=== PATIENT | female | born 1935 | race Caucasian/White ===

== ENCOUNTER 2022-05-10 14:30 | Outpatient (RCR) | payer MEDICARE, SELFPAY ==
--- NOTE | 2022-04-12 12:06 | PT.OPEX ---
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 I was fairly good until I was diagnosed with RC. The first surgery went fine, but the second one had some residual nerve injury. I have a big bump on my Lt shoulder, but my current concern is my Rt shoulder and neck. The pain is so bad it throws me off balance. I have balance problems secondary to hip and myriam TKR. I just move slower. My pain is 10/10 fairly constant. I get relief with heat at times. I try to change position and alternate how I use my arms. I have cont seeing a physician for my hand , injections help for a bit. I do not have GERARD. I only feel fairly good with Tylenol and sleeping. 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 Hypertension, mental health issues Weight Bearing Status Full Weight Bearing Therapy Limitations/Systems Review Vision,Hearing Objective Range of Motion AROM: Rt shoulder FF 0-55 / ABD 0-38 /ER 0-75/IR 0-55/EXT 0-50 Lt shoulder FF 0-95 /ABD 0-101 /ER 0-81/IR 0-52/EXT 0-60 CX AROM: FF WNL / EXT 50% of normal / Myriam ROT 40% of normal / SB myriam 20% of normal Strength In neutral, MMT is grossly 4/5 myriam Palpation Significant loss of up/down and side glides at CX spine. Hypertonicity of full psps occiput to T8, UT/MT/levator/ scalenes. Balance & Gait Flat foot strike, leg length deviation with Rt leg shorter - build up shoe. Moderate scoliosis Posture Increased thoracic kyphosis and reduced lumbar lordosis Assessment Assessment/Impression 86 yo with DX of Myriam Chronic Shoulder Pain (accompanying DX of: Lt A-C joint arthrosis , Lt RC Arthropathy, S/P Rt shoulder Reverse TSA replacement). She arrived to dept via IND ambulation without any AD. She presents with significant loss of AROM in CX and myriam shoulders. She lives alone, her son/family lives 5 blocks away. She is able to drive, complete all self cares and home chores IND . Does her own shopping and cooking. She states her lack of UE AROM is been present for many years (10+) and she has learned to live with it. She has significant soft tissue hypertonicity: UT/MT/rhomboid, levator, scalenes and sub- occipital group. Trigger point sensitive along med and sup scap borders. Rt first rib elevation. She suffers from scoliosis and leg length deviation. She wears a Rt build up shoe and states she is getting orthotics next week . She appears to have pain secondary to severe overuse and compensatory movements at myriam UE - UT overuse for task execution. She will benefit from cont skilled physical therapy to provide DTM/MFR/TPR and progressive stretch / strengthening with postural tips and possilbe use of TASTM and cupping trial. Thank you for this referral. Plan of Care Rehabilitation Potential Good Physical Therapy Goals In 4-6 visits, Birdie will be able to: 1. Pull chin /head back and create improve CX posture with increased CX EXT strength 2. Reduced pain report from contant 10/10 to at least 7/10 average 75% of the time. In 10-12 visits, Birdie will be able to: 1. IND in HEP with emphasis on alignment, reps/HOLD times to cont once DC from PT with pain control 2. Repetative UE use up to 60 min (cooking, cleaning, self cares, etc) without pain greater than 6/10 90% of the time. Coordination/Communication With Referral Source Treatment Plan/Direct Interventions Joint Mobilization,Manual Therapy,Neuromuscular Re-ed, Self-Care/Home Management, Therapeutic Activities, Therapeutic Exercises Frequency/Duration 1X/Wk for 12 visits Patient Will Be Discharged From Therapy Completion of LTG(s),Skills Plateau,Independent w/HEP, Independently Progressing Evaluation Billing Untimed Code Treatment Minutes 33 Complexity Moderate Certification Information Initial Certification Date 04/12/22 Ending Certification Date 07/05/22 Provider Signature Shows Agreement With POC & Medical Necessity Physician Comment/Change Comment or Changes Physician NPI Number #
== END 2022-06-21 12:08 | disposition home or self-care (01) ==
PROVIDERS: Visit Provider Orthopaedic Surgery
DX: M25.511 Pain in right shoulder (principal); Z51.89 Encounter for other specified aftercare
CPT/HCPCS: 97140; 97162

== ENCOUNTER 2023-05-09 08:11 | Day surgery (SDC) | payer MEDICARE, SELFPAY ==
[2023-05-09] MEDS: TETRACAINE 0.5% OPHTH 1 DROP EYE-LEFT ×2 (08:25→08:35)
[2023-05-09] MEDS: KETOROLAC OPHTH 0.5% 1 DROP EYE-LEFT ×2 (08:32→08:42)
[2023-05-09 08:36] VITALS: BMI 22.7
[2023-05-09 08:40] VITALS: BP 131/61; PULSE 62; RESP 20; TEMP 36.3; O2SAT 93
[2023-05-09] MEDS: SODIUM CHLORIDE 0.9 % (FLUSH) 10 ML SYRINGE IVF (08:51)
--- NOTE | 2023-05-09 08:52 | SUR.PREOP ---
The eye drops brought by the patient (Ketorolac and Prednisolone) are examined and I have determined they are labeled by the patient's pharmacy for this patient as prescribed by the surgeon. The bottles are intact, recently obtained and appear to be correct.
[2023-05-09] MEDS: TETRACAINE 0.5% OPHTH 2 DROP EYE-LEFT (09:35)
--- NOTE | 2023-05-09 09:38 | W.ANESCHARGE ---
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
[2023-05-09] MEDS: BALANCED SALT IRRIG SOLN 15 ML EYE-LEFT (09:39)
--- NOTE | 2023-05-09 10:12 | W.PM.OPTPROC ---
Procedure Note Date of procedure: 05/09/23 Will [facility] bill your pro fee for this procedure?: Yes Procedure Description: SURGEON: Ewelina Rossi MD PREOPERATIVE DIAGNOSIS: Nuclear sclerotic cataract, left eye. POSTOPERATIVE DIAGNOSIS: Nuclear sclerotic cataract, left eye. NAME OF OPERATION: Phacoemulsification of cataract with posterior chamber intraocular lens implantation in the left eye. ANESTHESIA: Topical. ESTIMATED BLOOD LOSS: Less than 2 cc. COMPLICATIONS: None. PATHOLOGY SPECIMEN: None. INDICATIONS: See consult note for details. The risks, benefits and alternatives of the procedure were explained to the patient, who elected to proceed and signed informed consent to do so. PROCEDURE: The patient was brought to the pre-holding area where the left eye was identified as the operative eye. I placed my initials above this eye. The patient received eye drops consisting of 0.5% tetracaine, 1% tropicamide, 10% phenylephrine, and 0.5% ketorolac. The patient was then brought to the operating room where the left eye was again identified as the operative eye. The eye was prepped with Betadine and draped in the usual sterile ophthalmic fashion. A #15 super-sharp blade was used to create a paracentesis site. 1% non-preserved intracameral lidocaine was injected into the anterior chamber. Endocoat was injected into the anterior chamber. A 2.4 mm keratome was used to create a three-plane self-sealing incision 1 mm anterior to the temporal limbus. A cystotome was used to create an anterior capsular leaflet. The Utrata forceps were used to extend this to form a continuous curvilinear capsulorrhexis. Hydrodissection was performed. The cataract was removed with phacoemulsification using the [id number] technique. The irrigation and aspiration tip was used to remove the remaining cortex. Healon was injected into the capsular bag. An KEO ZCB00 intraocular lens of 16.0 diopters was injected into the capsular bag. The irrigation and aspiration tip was used to remove the remaining viscoelastic. Balanced salt solution on a cannula was used to hydrate the wound, and the wound was found to be watertight. The pupil was noted to be round. DISPOSITION: The patient was taken to the recovery room and discharged to home in stable condition. The patient was instructed to call me or go to the emergency department with any sudden change, including dramatic loss of vision, severe pain in the eye or eyebrow region, nausea, or vomiting. The patient will follow up in the clinic tomorrow morning.
[2023-05-09 10:14] VITALS: BP 116/56; PULSE 65; RESP 16; TEMP 36.2; O2SAT 96
--- NOTE | 2023-05-09 11:16 | W.ANESCHARGE ---
Anesthesia Charges Start Date/Time Anesthesia Start Date: 05/09/23 Anesthesia Start Time: 09:29 Stop Date/Time Anesthesia Stop Date: 05/09/23 Anesthesia Stop Time: 10:07
--- NOTE | 2023-05-09 11:16 | W.ANESCHARGE ---
Anesthesia Charges Start Date/Time Anesthesia Start Date: 05/09/23 Anesthesia Start Time: 09:29 Stop Date/Time Anesthesia Stop Date: 05/09/23 Anesthesia Stop Time: 10:07 Summary Extremes of Age - Over 70 or under 1: MDA
== END 2023-05-09 10:43 | disposition home or self-care (01) ==
PROVIDERS: PCP Family Medicine; Visit Provider Ophthalmology
PROC: (CPT 66984; principal; 2023-05-09 08:15)
DX: H25.12 Age-related nuclear cataract, left eye (principal)
CPT/HCPCS: 66984; 00142; 99100; A9270; J2250; J3010; V2632

== ENCOUNTER 2023-05-23 07:23 | Day surgery (SDC) | payer MEDICARE, SELFPAY ==
[2023-05-23] MEDS: TETRACAINE 0.5% OPHTH 1 DROP EYE-RIGHT ×2 (07:30→07:35)
[2023-05-23] MEDS: KETOROLAC OPHTH 0.5% 1 DROP EYE-RIGHT ×2 (07:30→07:35)
[2023-05-23 07:31] VITALS: BMI 22.7
[2023-05-23 07:41] VITALS: BP 122/60; PULSE 78; RESP 16; TEMP 36.6; O2SAT 97
[2023-05-23] MEDS: SODIUM CHLORIDE 0.9 % (FLUSH) 10 ML SYRINGE IVF (07:45)
[2023-05-23] MEDS: TETRACAINE 0.5% OPHTH 2 DROP EYE-RIGHT (08:41)
[2023-05-23] MEDS: BALANCED SALT IRRIG SOLN 15 ML EYE-RIGHT (08:44)
[2023-05-23 09:05] VITALS: BP 135/69; PULSE 73; RESP 16; TEMP 36.6; O2SAT 98
--- NOTE | 2023-05-23 09:09 | P.ANES_ITS ---
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
--- NOTE | 2023-05-23 09:09 | P.OPTPRC_ITS ---
Procedure Note Date of procedure: 05/23/23 Will [facility] bill your pro fee for this procedure?: Yes Procedure Description: SURGEON: Ewelina Rossi MD PREOPERATIVE DIAGNOSIS: Nuclear sclerotic cataract, right eye. POSTOPERATIVE DIAGNOSIS: Nuclear sclerotic cataract, right eye. NAME OF OPERATION: Phacoemulsification of cataract with posterior chamber intraocular lens implantation in the right eye. ANESTHESIA: Topical. ESTIMATED BLOOD LOSS: Less than 2 cc. COMPLICATIONS: None. PATHOLOGY SPECIMEN: None. INDICATIONS: See consult note for details. The risks, benefits and alternatives of the procedure were explained to the patient, who elected to proceed and signed informed consent to do so. PROCEDURE: The patient was brought to the pre-holding area where the right eye was identified as the operative eye. I placed my initials above this eye. The patient received eye drops consisting of 0.5% tetracaine, 1% tropicamide, 10% phenylephrine, and 0.5% ketorolac. The patient was then brought to the operating room where the right eye was again identified as the operative eye. The eye was prepped with Betadine and draped in the usual sterile ophthalmic fashion. A #15 super-sharp blade was used to create a paracentesis site. 1% non-preserved intracameral lidocaine was injected into the anterior chamber. Endocoat was injected into the anterior chamber. A 2.4 mm keratome was used to create a three-plane self-sealing incision 1 mm anterior to the temporal limbus. A cystotome was used to create an anterior capsular leaflet. The Utrata forceps were used to extend this to form a continuous curvilinear capsulorrhexis. Hydrodissection was performed. The cataract was removed with phacoemulsification using the [id number] technique. The irrigation and aspiration tip was used to remove the remaining cortex. Healon was injected into the capsular bag. An KEO ZCB00 intraocular lens of 17.0 diopters was injected into the capsular bag. The irrigation and aspiration tip was used to remove the remaining viscoelastic. Balanced salt solution on a cannula was used to hydrate the wound, and the wound was found to be watertight. The pupil was noted to be round. DISPOSITION: The patient was taken to the recovery room and discharged to home in stable condition. The patient was instructed to call me or go to the emergency department with any sudden change, including dramatic loss of vision, severe pain in the eye or eyebrow region, nausea, or vomiting. The patient will follow up in the clinic tomorrow morning.
== END 2023-05-23 09:40 | disposition home or self-care (01) ==
PROVIDERS: PCP Family Medicine; Visit Provider Ophthalmology
PROC: (CPT 66984; principal; 2023-05-23 07:30)
DX: H25.11 Age-related nuclear cataract, right eye (principal)
CPT/HCPCS: 66984; 00142; 99100; A9270; J2250; J3010; V2632

== ENCOUNTER 2023-08-23 13:00 | Outpatient (RCR) | payer MEDICARE, SELFPAY | END 2023-12-21 23:59 | disposition home or self-care (01) | PROVIDERS: PCP Family Medicine; Visit Provider Chiropractor Rehabilitation | DX: M54.2 Cervicalgia (principal); Z98.1 Arthrodesis status; Z74.09 Other reduced mobility; R29.898 Other symptoms and signs involving the musculoskeletal system; Z51.89 Encounter for other specified aftercare | CPT/HCPCS: 97110; 97140; 97162 ==

== ENCOUNTER 2024-01-13 22:12 | Inpatient (IN) | payer MEDICARE, SELFPAY ==
[2024-01-13 22:26] VITALS: BP 103/66; PULSE 95; RESP 20; TEMP 36.2; O2SAT 97; BMI 18.9
--- NOTE | 2024-01-13 22:52 | CRLHL7_ITS ---
For Patients: As a result of the Century Cures Act, medical imaging exams and procedure reports are released immediately into your electronic medical record. You may view this report before your referring provider. If you have questions, please contact your health care provider. INDICATION: BLOODY DIARRHEA. LOWER ABD PAIN. HX DIVERTICULITIS. TECHNIQUE: CT abdomen and pelvis acquired with 100 cc of Omnipaque 350 IV contrast. COMPARISON: None. FINDINGS: Lower chest: 9 mm flat nodular density in the right middle lobe, likely a focus of scarring. Liver: Unremarkable. Normal in size and attenuation. No suspicious masses. Gallbladder and bile ducts: Unremarkable. No stones or inflammation. No biliary dilatation. Pancreas: Unremarkable. No mass or inflammation. Spleen: Unremarkable. Normal in size. No masses. Adrenal glands: Unremarkable. No nodules. Kidneys, Ureters, and Bladder: Moderate to severe right-sided hydronephrosis. Punctate nonobstructing nephrolith within the right kidney. The ureters are normal in caliber. Unremarkable left kidney and urinary bladder. GI tract: Diverticulosis without pericolonic inflammation. No obstruction. Normal appendix. Vasculature: Normal caliber abdominal aorta with severe atherosclerotic calcification. Mesenteric arteries are patent. Lymph nodes: No lymphadenopathy. Peritoneum/Abdominal Wall: Unremarkable. No free air or significant free fluid. Pelvis: 5.5 x 3.7 cm simple cystic lesion within the right adnexa 3.4 x 3.2 cm simple cystic lesion within the left adnexa. Bones: Left total hip arthroplasty. Otherwise, unremarkable for age IMPRESSION: 1. Diverticulosis without evidence of diverticulitis. 2. Moderate to severe right-sided hydronephrosis with abrupt transition to normal caliber right ureter at the ureteropelvic junction. 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 No obstructing lesion visualized. 3. Bilateral adnexal cystic lesions, right greater than left measuring 5.5 cm and 3.4 cm, respectively. Recommend further evaluation with pelvic ultrasound as an outpatient. Please note that all CT scans at this facility use dose modulation, iterative reconstruction, and/or weight-based dosing when appropriate to reduce radiation dose to as low as reasonably achievable. Dictated by Pipe Blair MD @ 01/14/2024 12:30:20 AM (Electronically Signed)
[2024-01-13] MEDS: 0.9 % SODIUM CHLORIDE 1000 ml 1,000 ML IV (23:02)
[2024-01-13 23:18] LABS: Albumin* 3.2 g/dL (3.3-5.0); Chloride* 99 mmol/L (96-114); Sodium* 134 mmol/L (135-149)
[2024-01-13 23:19] LABS: Potassium* 4.2 mmol/L (3.6-5.1)
[2024-01-13 23:20] LABS: Est. Creatinine Clearance* 31.81; Estimated Glomerular Filt Rate 55 ml/min
[2024-01-13 23:21] LABS: Alkaline Phosphatase* 68 U/L (40-150); Anion Gap 4 mEq/L (7-15); Aspartate Amino Transferase* 36 U/L (12-35); Bilirubin Direct* 0.3 mg/dL (0.0-0.5); Bilirubin Total* 0.5 mg/dL (0.1-1.5); Blood Urea Nitrogen* 49 mg/dL (7-30); Carbon Dioxide* 31 mmol/L (20-32); Total Protein* 5.7 g/dL (6.0-8.3)
[2024-01-13 23:22] LABS: Alanine Aminotransferase* 26 U/L (4-35); Calcium* 9.8 mg/dL (8.4-10.6); Glucose* 131 mg/dL (60-115)
[2024-01-13 23:24] LABS: C Reactive Protein* 1.7 mg/dL (0.5-1.0)
[2024-01-13 23:25] LABS: Basophils Percent Auto 0.2 % (0.0-3.0); Eosinophils Percent Auto 0.8 % (0.0-7.0); Hematocrit 30.1 % (33.0-51.0); Hemoglobin* 10.1 gm/dL (12.0-16.0); Immature Granulocytes Pct Auto 5.8 %; Lymphocytes Percent Auto 18.2 % (20-44); Mean Corpuscular HGB Conc 34 gm/dL (32-36); Mean Corpuscular Hemoglobin 33 pg (26-34); Mean Corpuscular Volume 98 fL (80-100); Monocytes Percent Auto 8.7 % (0.0-11.0); Neutrophils Percent Auto 66.3 % (42.0-72.0); Platelet Count* 373 K/uL (140-440); RDW Coefficient of Variation % 12.4 % (11.5-15.5); Red Blood Count 3.07 m/uL (4.00-5.20); Slide Review Reflex No; White Blood Count* 13.04 K/uL (4.50-11.00)
[2024-01-13 23:29] LABS: INR 1.01 (0.91-1.10); Prothrombin Time 13.9 Seconds
--- NOTE | 2024-01-13 23:35 | ED_ITS ---
HPI - General Adult General Date Seen: 01/13/24 Chief complaint: Diarrhea Stated complaint: Diarrhea Time Seen by Provider: 01/13/24 22:18 Source: patient, family, RN notes reviewed and old records reviewed Mode of arrival: ambulatory Limitations: no limitations History of Present Illness HPI narrative: Patient is an 88-year-old woman here with family for evaluation of an episode of bloody diarrhea. She does say that she had some diarrhea for which she was seen in clinic last Sunday. They treated the diarrhea it sounds like with an antidiarrheal and she got back to normal. Family says they are here because clinic said if she had bloody stools they want to know about that. She did have 1 episode of bloody diarrhea tonight, has not had significant abdominal pain although she notes little abdominal tenderness. No recent antibiotics or travel. No fevers. No nausea or vomiting. No history of prior GI bleeding. She is not anticoagulated. No black or tarry stools. Related Data Home Medications ?Medication ?Instructions ?Recorded ?Confirmed amlodipine 10 mg tablet 10 mg PO DAILY 05/07/23 01/13/24 calcium carbonate 200 mg PO BID 05/07/23 01/13/24 metoprolol succinate 50 mg 50 mg PO DAILY 05/07/23 01/13/24 tablet,extended release 24 hr cyclosporine 0.05 % eye drops 1 drp ophthalmic (eye) BID 01/14/24 01/14/24 (Restasis MultiDose) hydromorphone 2 mg tablet 2 mg PO Q6H PRN 01/14/24 01/14/24 pregabalin 50 mg capsule 50 mg PO TID 01/14/24 01/14/24 Allergies Allergy/AdvReac Type Severity Reaction Status Date / Time oxycodone Allergy Rash Verified 01/13/24 23:54 Penicillins Allergy Rash Verified 01/13/24 23:54 tramadol Allergy Rash Verified 01/13/24 23:54 Review of Systems Status of ROS: Reports: 10 or more systems reviewed and unremarkable except as noted in History and below [facility] Medical History Cervical myelopathy ?G95.9 - Disease of spinal cord, unspecified (ICD-10) Hypertension ?I10 - Essential (primary) hypertension (ICD-10) Lipoma of left upper extremity ?D17.22 - Benign lipomatous neoplasm of skin and subcutaneous tissue of left arm (ICD-10) Lipoma of right upper extremity ?D17.21 - Benign lipomatous neoplasm of skin and subcutaneous tissue of right arm (ICD-10) 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 - Unspecified mononeuropathy of right upper limb (ICD-10) Trigger finger of right hand ?M65.30 - Trigger finger, unspecified finger (ICD-10) Onychomycosis ?B35.1 - Tinea unguium (ICD-10) 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 - Spondylosis without myelopathy or radiculopathy, lumbar region (ICD-10) Myalgia ?M79.10 - Myalgia, unspecified site (ICD-10) 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, unspecified shoulder (ICD-10) [facility]MC DJD(carpometacarpal degenerative joint disease), localized primary ?M19.049 - Primary osteoarthritis, unspecified hand (ICD-10) 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 - Other lesions of median nerve, unspecified upper limb (ICD-10) Surgical History S/P total knee replacement ?Z96.659 - Presence of unspecified artificial knee joint (ICD-10) H/O total hip arthroplasty ?Z96.649 - Presence of unspecified artificial hip joint (ICD-10) S/P cervical spinal fusion ?Z98.1 - Arthrodesis status (ICD-10) S/P endoscopic carpal tunnel release ?Z98.890 - Other specified postprocedural states (ICD-10) S/p reverse total shoulder arthroplasty ?Z96.619 - Presence of unspecified artificial shoulder joint (ICD-10) Social History What is your current living situation?: I presently have a place to live Problems where you live: no known problems Problems where you live details: N/A In the past 12 months, utilities in danger of being shut off: no In past 12 months, lack of transportation kept you from medical appts, meetings, work, or getting things needed for daily living: no In the past 12 mos, have been you worried that your food would run out before you had money to buy more?: never true In the past 12 mos, the food you bought just didn't last and you didn't have money to buy more?: never true Smoking Status: Never smoker Do you use any of these nicotine containing products: None Second hand tobacco smoke exposure: No How often do you have a drink containing alcohol: monthly or less Alcohol type: wine How many standard drinks containing alcohol do you have on a typical day: 1 or 2 How often do you have six or more drinks on one occasion: Never AUDIT-C Alcohol total score: 1 Non-prescribed substance use: denies use Caffeine: Yes (1 cup coffee/day) How often does anyone, including family, friends and others, physically hurt you : never How often does anyone, including family, friends and others, insult or talk down to you: never How often does anyone, including family, friends and others, threaten you with harm: never How often does anyone, including family, friends and others, scream or curse at you: never Are you using contraception or practicing any form of control: No Exam Narrative: Exam Narrative: Vital signs as noted above. In general, an alert, well-appearing patient. Head: Normocephalic, atraumatic. Eyes: Pupils are equal reactive. Extraocular movements are full. Conjunctivae are normal. ENT: Mucous membranes are moist. Throat is normal. Neck: Supple without lymphadenopathy. Heart: Regular rate and rhythm. No murmur or rub. Lungs: Clear bilaterally. No increased work of breathing, crackles or wheezes. Abdomen: Soft and nondistended. A little bit of lower abdominal tenderness without rebound guarding or rigidity. Extremities: Well perfused. No edema. No calf tenderness. Pulses intact. Neurologic: Patient is alert and oriented to person and place. Speech is fluent. Face is symmetric. Moves all extremities equally. Affect: Normal. Skin: Warm and dry. Well perfused. Const: Vital Signs, click to edit/add: Vital Signs - 24 hr 01/13/24 22:26 Temperature 97.2 F L Pulse Rate [Pulse Oximeter] 95 Respiratory Rate 20 Blood Pressure [Ri ght Upper Arm] 103/66 Pulse Oximetry 97 Oxygen Delivery Me thod Room Air Documenting provider has reviewed patient's vital signs: yes Course Course ED Course: Will place an IV, give some fluids, check hemoglobin and other labs. I think it is reasonable to do a CT scan make sure she does not have evidence of colitis, diverticulitis or other acute infectious process. Minimal abdominal pain, doubt this represents ischemic colitis. Labs are notable for hemoglobin of 10, baseline unknown. Patient does not believe that she has been anemic in the past although I get the sense she isn't entirely sure what that means. White count mildly elevated at 13, normal platelets. Metabolic panel notable for sodium of 134 potassium 4.2 BUN of 49 perhaps related to GI blood loss. Creatinine is normal. Glucose is 131 LFTs unremarkable. CRP mildly elevated 1.7. CT scan by my review showed fairly significant hydronephrosis and hydroureter on the right of uncertain significance. She had cystic structures in the pelvis as well. I did not see significant inflammatory changes around the bowel. Final radiology read as follows:FINDINGS: Lower chest: 9 mm flat nodular density in the right middle lobe, likely a focus of scarring. Liver: Unremarkable. Normal in size and attenuation. No suspicious masses. Gallbladder and bile ducts: Unremarkable. No stones or inflammation. No biliary dilatation. Pancreas: Unremarkable. No mass or inflammation. Spleen: Unremarkable. Normal in size. No masses. Adrenal glands: Unremarkable. No nodules. Kidneys, Ureters, and Bladder: Moderate to severe right-sided hydronephrosis. Punctate nonobstructing nephrolith within the right kidney. The ureters are normal in caliber. Unremarkable left kidney and urinary bladder. GI tract: Diverticulosis without pericolonic inflammation. No obstruction. Normal appendix. Vasculature: Normal caliber abdominal aorta with severe atherosclerotic calcification. Mesenteric arteries are patent. Lymph nodes: No lymphadenopathy. Peritoneum/Abdominal Wall: Unremarkable. No free air or significant free fluid. Pelvis: 5.5 x 3.7 cm simple cystic lesion within the right adnexa 3.4 x 3.2 cm simple cystic lesion within the left adnexa. Bones: Left total hip arthroplasty. Otherwise, unremarkable for age IMPRESSION: 1. Diverticulosis without evidence of diverticulitis. 2. Moderate to severe right-sided hydronephrosis with abrupt transition to normal caliber right ureter at the ureteropelvic junction. 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 No obstructing lesion visualized. 3. Bilateral adnexal cystic lesions, right greater than left measuring 5.5 cm and 3.4 cm, respectively. Recommend further evaluation with pelvic ultrasound as an outpatient. Reviewed all this with the patient. In the interim, she did have another bowel movement here, it was really just all large clot, and with her hemoglobin low and baseline unknown, and with evidence of ongoing bleeding, I did recommend that she stay in hospital tonight for serial hemoglobins and discussion of further evaluation of GI bleed tomorrow. Other findings to be evaluated as needed. I gave her Protonix here, I did a type and screen. She is stable for admission, [facility] accepted. Vital Signs Vital signs: Initial Vital Signs Temperature 97.2 F L 01/13/24 22:26 Temperature Source Temporal Artery Scan 01/13/24 22:26 Pulse Rate 95 01/13/24 22:26 Pulse Rhythm Regular 01/13/24 22:26 Pulse Strength 3+ Normal 01/13/24 22:26 Respiratory Rate 20 01/13/24 22:26 Blood Pressure 103/66 01/13/24 22:26 Blood Pressure Mean 78 01/13/24 22:26 Pulse Oximetry 97 01/13/24 22:26 Oxygen Delivery Method Room Air 01/13/24 22:26 Vital Signs Temperature 97.2 F L 01/13/24 22:26 Pulse Rate 95 01/13/24 22:26 Respiratory Rate 20 01/13/24 22:26 Blood Pressure 103/66 01/13/24 22:26 Pulse Oximetry 97 01/13/24 22:26 Oxygen Delivery Method Room Air 01/13/24 22:26 Temperature 98.2 F 01/15/24 07:35 Pulse Rate 117 H 01/15/24 08:00 Respiratory Rate 18 01/15/24 08:00 Blood Pressure 139/68 01/15/24 07:35 Pulse Oximetry 95 01/15/24 07:35 Oxygen Delivery Method Room Air 01/15/24 07:35 Medications Administered Medications: Generic Name Dose Route Start Last Admin Trade Name Freq PRN Reason Stop Dose Admin Amlodipine Besylate 10 mg 01/14/24 09:00 01/14/24 08:17 Amlodipine 10 Mg Tablet PO Not Given DAILY [facility] Metoprolol Succinate 50 mg 01/14/24 09:00 01/14/24 08:17 Metoprolol Succinate (Xl) 50 Mg Tab PO Not Given DAILY ZAHRA Pantoprazole Sodium 40 mg 01/14/24 06:00 01/15/24 06:25 Pantoprazole Sodium 40 Mg Inj IVP 40 mg Q12H ZAHRA Administration Sodium Chloride 5 ml 01/14/24 03:30 01/15/24 06:26 Sodium Chloride 0.9 % (Flush) 10 Ml Syringe IVF 5 ml .FLUSH PRN Administration Sodium Chloride 5 ml 01/14/24 09:00 01/14/24 22:12 Sodium Chloride 0.9 % (Flush) 10 Ml Syringe IVF 5 ml BID ZAHRA Administration Sodium Chloride 250 ml 01/14/24 07:16 01/14/24 12:20 0.9 % Sodium Chloride 250 Ml IV 01/15/24 23:59 250 ml ONCE PRN Administration Discontinued Medications Generic Name Dose Route Start Last Admin Trade Name Freq PRN Reason Stop Dose Admin Sodium Chloride 1,000 mls @ 1,000 mls/hr 01/13/24 22:45 01/14/24 00:15 0.9 % Sodium Chloride 1000 Ml IV 01/13/24 23:44 Infused .Q1H ZAHRA Infusion Pantoprazole Sodium 40 mg 01/14/24 00:39 01/14/24 00:56 Pantoprazole Sodium 40 Mg Inj IVP 01/14/24 00:40 40 mg ONCE ONE Administration Medical Decision Making Lab Data Labs: Lab Results 01/13/24 01/14/24 Range/Units 22:50 00:00 WBC 13.04 H (4.50-11.00) K/uL RBC 3.07 L (4.00-5.20) m/uL Hgb 10.1 L (12.0-16.0) gm/dL Hct 30.1 L (33.0-51.0) % MCV 98 (80-100) fL MCH 33 (26-34) pg MCHC 34 (32-36) gm/dL RDW Coeff of Shyla 12.4 (11.5-15.5) % Plt Count 373 (140-440) K/uL Neut % (Auto) 66.3 (42.0-72.0) % Lymph % (Auto) 18.2 L (20-44) % [place] % (Auto) 8.7 (0.0-11.0) % Eos % (Auto) 0.8 (0.0-7.0) % Baso % (Auto) 0.2 (0.0-3.0) % Neut # (Auto) 8.60 H (1.7-7.0) K/uL Lymph # (Auto) 2.40 (0.90-2.90) K/uL [place] # (Auto) 1.10 H (0.00-0.90) K/UL Eos # (Auto) 0.10 (0.00-0.50) K/uL Baso # (Auto) 0.00 (0.00-0.30) K/uL Abs Immat Gran (auto) 0.80 H (0.00-0.30) K/uL Imm/Tot Granulo (auto) 5.8 % INR 1.01 (0.91-1.10) Sodium 134 L (135-149) mmol/L Potassium 4.2 (3.6-5.1) mmol/L Chloride 99 (96-114) mmol/L Carbon Dioxide 31 (20-32) mmol/L Anion Gap 4 L (7-15) mEq/L BUN 49 H (7-30) mg/dL Creatinine 1.0 (0.5-1.5) mg/dL Estimated Creat Clear 31.81 Estimated GFR 55 ml/min Glucose 131 H (60-115) mg/dL Calcium 9.8 (8.4-10.6) mg/dL Total Bilirubin 0.5 (0.1-1.5) mg/dL Direct Bilirubin 0.3 (0.0-0.5) mg/dL AST 36 H (12-35) U/L ALT 26 (4-35) U/L Alkaline Phosphatase 68 (40-150) U/L C-Reactive Protein 1.7 H (0.5-1.0) mg/dL Total Protein 5.7 L (6.0-8.3) g/dL Albumin 3.2 L (3.3-5.0) g/dL Blood Type A Positive Antibody Screen NEGATIVE Crossmatch (AHG) See Detail Discharge Plan Discharge Clinical Impression: GI bleed Patient Disposition: Admitted As Observation Condition: Stable
[2024-01-14] VITALS (18 sets, daily range): BP systolic 84–124; BP diastolic 53–91; PULSE 82–109; RESP 16–20; TEMP 36.5–36.8; O2SAT 93–98; BMI 19.3
[2024-01-14] MEDS: PANTOPRAZOLE SODIUM 40 MG INJ IVP ×3 (00:56→17:35)
--- NOTE | 2024-01-14 03:42 | W.PM.THH&P_ITS ---
Telehealth- H&P: HPI History of Present Illness Date Seen: 01/26/24 Chief complaint: Diarrhea Narrative: Birdie Fernandez is seen as an Interactive Telehealth visit. Birdie Fernandez is a 88 year old male who is seen in her heart room and [facility]. She has been admitted through the emergency room. She is admitted with the assistance of nursing staff. She tells me that about a week ago she had diarrhea which she was seen in clinic it did not have any blood in it. She did better for about a week and then today has developed bloody stools. She is tells me the stool started off black and now have become more red. She denies fevers chills abdominal pain any burning with urination or other symptoms. She came into the emergency room and was evaluated. Hemoglobin was noted to be lower around 10. In the emergency room she denied black or bloody stools but to me she tells me they were indeed black. She was able Review of Systems Narrative: A complete review of systems was performed positive pertinent and negatives in the history of present illness. 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 - Unspecified mononeuropathy of right upper limb (ICD-10) Trigger finger of right hand ?M65.30 - Trigger finger, unspecified finger (ICD-10) Onychomycosis ?B35.1 - Tinea unguium (ICD-10) 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 - Spondylosis without myelopathy or radiculopathy, lumbar region ( ICD-10) Myalgia ?M79.10 - Myalgia, unspecified site (ICD-10) 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, unspecified shoulder (ICD-10) CMC DJD(carpometacarpal degenerative joint disease), localized primary ?M19.049 - Primary osteoarthritis, unspecified hand (ICD-10) 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 - Other lesions of median nerve, unspecified upper limb (ICD-10) Surgical History S/P total knee replacement ?Z96.659 - Presence of unspecified artificial knee joint (ICD-10) H/O total hip arthroplasty ?Z96.649 - Presence of unspecified artificial hip joint (ICD-10) S/P cervical spinal fusion ?Z98.1 - Arthrodesis status (ICD-10) S/P endoscopic carpal tunnel release ?Z98.890 - Other specified postprocedural states (ICD-10) S/p reverse total shoulder arthroplasty ?Z96.619 - Presence of unspecified artificial shoulder joint (ICD-10) Social History What is your current living situation?: I presently have a place to live Problems where you live: no known problems Problems where you live details: N/A In the past 12 months, utilities in danger of being shut off: no In past 12 months, lack of transportation kept you from medical appts, meetings, work, or getting things needed for daily living: no In the past 12 mos, have been you worried that your food would run out before you had money to buy more?: never true In the past 12 mos, the food you bought just didn't last and you didn't have money to buy more?: never true Smoking Status: Never smoker Do you use any of these nicotine containing products: None Second hand tobacco smoke exposure: No How often do you have a drink containing alcohol: monthly or less Alcohol type: wine How many standard drinks containing alcohol do you have on a typical day: 1 or 2 How often do you have six or more drinks on one occasion: Never AUDIT-C Alcohol total score: 1 Non-prescribed substance use: denies use Caffeine: Yes (1 cup coffee/day) How often does anyone, including family, friends and others, physically hurt you : never How often does anyone, including family, friends and others, insult or talk down to you: never How often does anyone, including family, friends and others, threaten you with harm: never How often does anyone, including family, friends and others, scream or curse at you: never Are you using contraception or practicing any form of control: No Meds Home Medications and Allergies Home Medications ?Medication ?Instructions ?Recorded ?Confirmed ?Type amlodipine 10 mg tablet 10 mg PO DAILY 05/07/23 01/13/24 History calcium carbonate 200 mg PO BID 05/07/23 01/13/24 History metoprolol succinate 50 mg 50 mg PO DAILY 05/07/23 01/13/24 History tablet,extended release 24 hr cyclosporine 0.05 % eye drops 1 drp ophthalmic (eye) BID 01/14/24 01/14/24 History (Restasis MultiDose) hydromorphone 2 mg tablet 2 mg PO Q6H PRN 01/14/24 01/14/24 History pregabalin 50 mg capsule 50 mg PO TID 01/14/24 01/14/24 History Allergies Allergy/AdvReac Type Severity Reaction Status Date / Time oxycodone Allergy Rash Verified 01/13/24 23:54 Penicillins Allergy Rash Verified 01/13/24 23:54 tramadol Allergy Rash Verified 01/13/24 23:54 Exam Narrative Exam Narrative: Physical Exam GENERAL: ?vital signs reviewed, well developed and nourished, in no distress HEENT: pupils are equal round and reactive to light, extraocular movements are grossly within normal limits and oral mucosa is moist. NECK: Supple without lymphadenopathy or thyromegaly according to nursing staff examination observation HEART: Regular rate and rhythm With soft systolic murmur no rubs or gallops. LUNGS: Clear to auscultation bilaterally with good air movement throughout ABDOMEN: Observation from nurse assisted exam, abdomen appears soft, nontender, and nondistended with Positive bowel sounds noted. EXTREMITIES: Strength and sensation is observed to be grossly within normal limits in the upper and lower extremities.? No focal strength deficit is observed. SKIN:? Observed warm and dry with color normal Const Vital Signs, click to edit/add: Vital Signs - 24 hr 01/13/24 22:26 01/14/24 03:02 Temperature 97.2 F L 97.9 F Pulse Rate [Pulse Oximeter] 95 92 Respiratory Rate 20 20 Blood Pressure [Right Arm] 122/74 Blood Pressure [Right Upper Arm] 103/66 Pulse Oximetry 97 98 Oxygen Delivery Method Room Air Room Air Hospitalist - H&P: Result Labs Labs: Short CBC 01/13/24 Range/Units 22:50 WBC 13.04 H (4.50-11.00) K/uL Hgb 10.1 L (12.0-16.0) gm/dL Hct 30.1 L (33.0-51.0) % Plt Count 373 (140-440) K/uL BMP 01/13/24 22:50 Sodium 134 L Potassium 4.2 Chloride 99 Carbon Dioxide 31 BUN 49 H Creatinine 1.0 Glucose 131 H Calcium 9.8 Liver Function 01/13/24 Range/Units 22:50 Total Bilirubin 0.5 (0.1-1.5) mg/dL Direct Bilirubin 0.3 (0.0-0.5) mg/dL AST 36 H (12-35) U/L ALT 26 (4-35) U/L Alkaline Phosphatase 68 (40-150) U/L Albumin 3.2 L (3.3-5.0) g/dL ECG Pacemaker function: normal pacer function Imaging CT Chest/Ab/Pelvis: Radiologist's impression: CT abdomen pelvis 1. Diverticulosis without evidence of diverticulitis. 2. Moderate to severe right-sided hydronephrosis with abrupt transition to normal caliber right ureter at the ureteropelvic junction. 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 No obstructing lesion visualized. 3. Bilateral adnexal cystic lesions, right greater than left measuring 5.5 cm and 3.4 cm, respectively. Recommend further evaluation with pelvic ultrasound as an outpatient. Assessment and Plan Assessment and plan (1) GI bleed: Problem comment: - per history with melena and a maroon-colored stool early this morning, it was concerning for the possibility of upper GI bleed. EGD was done this morning and was negative. It is been 10 years since the patient last had a colonoscopy. She notes that it was negative 10 years ago. Plan is to finish getting the 2 units of blood, recheck hemoglobin 1 hour after that and check hemoglobin tomorrow morning looking for stability. If patient has had no further melena or bloody bowel movements, then she could discharge home and follow-up with her primary care provider. With her son in the room today, we spoke about how this may complicate her upcoming hip surgery scheduled for later this month as she would need to be on blood thinners after surgery for VTE prophylaxis and if we did not understand the nature of this GI bleed and whether it will recur, she would be at risk for bleeding while on blood thinners. I have advised her to see Dr. Cervantes as an outpatient to discuss these concerns prior to her planned elective surgery. - 01/14 As above. Also Nuc med GI scan shows probable distal small bowel bleed. I spoke with Dr. Graves ([facility]) and Dr. Elizabeth (hospitalist - accepted patient to her service). They would like me to get a CTA for GI bleed here while patient is waiting for transfer to [place]. Status: Acute (2) Hydronephrosis: Problem comment: Moderate to severe right-sided hydronephrosis with abrupt transition to normal caliber right ureter at the ureteropelvic junction. 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 No obstructing lesion visualized. I discussed these results with the patient and her son. They were aware of these results and were planning on outpatient follow-up. Status: Acute (3) Adnexal cyst: Problem comment: Bilateral adnexal cystic lesions, right greater than left measuring 5.5 cm and 3.4 cm, respectively. Recommend further evaluation with pelvic ultrasound as an outpatient. I discussed these results with the patient and her son. They were aware of these results and were planning on outpatient follow-up. Status: Acute (4) Anemia: Problem comment: - 01/13 Hemoglobin is 7.3 this morning, she is symptomatic and pale. She is agreeable to transfusion. Getting 2 units packed red blood cells. Goal hemoglobin is greater than 8. - 01/14 Patient still having melena overnight, no bright red blood. Remains symptomatic and pale. She is in sinus tachycardia today. This morning's hemoglobin is 8, down from 10 and 8.9 yesterday after transfusion. I gave her a 3rd unit of blood today and obtained a nuclear medicine GI bleed scan which was positive for GI bleeding within the pelvis. It is thought to represent small bowel bleeding. Status: Acute Plan GI bleed?difficult to tell if this is upper or lower. Patient tells me that her stools initially started off is black. Hemoglobin is 10 unclear if what her baseline is. Will check a hemoglobin every [address] on twice daily proton pump inhibitor. Will keep her n.p.o. will place consult with general surgery they may need to do an EGD. Will leave this to their discretion. Continue to watch her closely. Further recommendations pending her clinical course. Hydronephrosis?this can be worked up as an outpatient. Bilateral adnexal cyst. These can be further worked up as an outpatient. Patient is aware of these I did discuss with her about this on admission anemia?unclear if this is acute or chronic. Will recheck hemoglobin every 6 hours. Further recommendations pending clinical course if continues to drop patient has been typed and screened. DVT prophylaxis will not start anything for now if she remains hospitalized consider mechanical devices. CODE STATUS was discussed on admission she wishes to be a full code. Telehealth: Statement Statement Telehealth Visit: Today's History and Physical is provided via interactive telehealth by Rc Dixon DO.? Patient is located at [facility].? Provider is located at [facility].? Nursing staff assisted with the patient's exam. The visit being done today meets criteria for a telehealth visit and the patient or patient?s parent/guardian is aware the visit is a telehealth visit. Camera Start Time: 03:03 Camera End Time: 03:18
--- NOTE | 2024-01-14 06:08 | PC.NURSE ---
End of shift [id number] - Pt alert, oriented, cooperative and talkative. Arrived from ED at approximately 0110 with family at bedside. Pt able to stand/pivot to bed. Tolerating RA and denies pain. Incontinent of bowels during shift, dark red blood noted in stool. aware. RN assisted pt to stand/pivot to bedside commode, upon transfer pt was observed to experience pre-syncopal episode evidenced by pt slumping backwards and pt's eyes rolling to the back of her head. Pt able to answer orienting questions during episode, regained full alertness within minutes. Pt able to safely transfer back to bed with stand/pivot, walker/ gait belt, and 2 assist, but did start to exhibit symptoms of pre-syncopal episode and stated that her feeling of weakness had increased significantly since her pre-hospital baseline. Pt observed to sleep during shift, appears to be resting comfortably in bed.
[2024-01-14 06:40] LABS: Hemoglobin* 7.3 gm/dL (12.0-16.0)
--- NOTE | 2024-01-14 10:20 | P.ANES_ITS ---
Anesthesia Charges Start Date/Time Anesthesia Start Date: 01/14/24 Anesthesia Start Time: 10:05 Stop Date/Time Anesthesia Stop Date: 01/14/24 Anesthesia Stop Time: 10:18 Summary Emergency: WASTE ELIMINATION Extremes of Age - Over 70 or under 1: WASTE ELIMINATION
--- NOTE | 2024-01-14 10:20 | W.ANESCHARGE ---
Anesthesia Charges Start Date/Time Anesthesia Start Date: 01/14/24 Anesthesia Start Time: 10:05 Stop Date/Time Anesthesia Stop Date: 01/14/24 Anesthesia Stop Time: 10:18 Summary Emergency: UNITIZER Extremes of Age - Over 70 or under 1: UNITIZER
--- NOTE | 2024-01-14 10:59 | W.ANESCHARGE ---
Anesthesia Charges Start Date/Time Anesthesia Start Date: 01/14/24 Anesthesia Start Time: 10:05 Stop Date/Time Anesthesia Stop Date: 01/14/24 Anesthesia Stop Time: 10:18 Summary Emergency: MDA Extremes of Age - Over 70 or under 1: MDA
[2024-01-14] MEDS: 0.9 % SODIUM CHLORIDE 250 ml IV (12:20)
--- NOTE | 2024-01-14 13:42 | P.IMPN_ITS ---
Progress Note: A&P Assessment and plan (1) GI bleed: Problem details: - per history with melena and a maroon-colored stool early this morning, it was concerning for the possibility of upper GI bleed. EGD was done this morning and was negative. It is been 10 years since the patient last had a colonoscopy. She notes that it was negative 10 years ago. Plan is to finish getting the 2 units of blood, recheck hemoglobin 1 hour after that and check hemoglobin tomorrow morning looking for stability. If patient has had no further melena or bloody bowel movements, then she could discharge home and follow-up with her primary care provider. With her son in the room today, we spoke about how this may complicate her upcoming hip surgery scheduled for later this month as she would need to be on blood thinners after surgery for VTE prophylaxis and if we did not understand the nature of this GI bleed and whether it will recur, she would be at risk for bleeding while on blood thinners. I have advised her to see Dr. Cervantes as an outpatient to discuss these concerns prior to her planned elective surgery. Status: Acute (2) Anemia: Problem details: Hemoglobin is 7.3 this morning, she is symptomatic and pale. She is agreeable to transfusion. Getting 2 units packed red blood cells. Goal hemoglobin is greater than 8. Status: Acute (3) Hydronephrosis: Problem details: Moderate to severe right-sided hydronephrosis with abrupt transition to normal caliber right ureter at the ureteropelvic junction. 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 No obstructing lesion visualized. I discussed these results with the patient and her son. They were aware of these results and were planning on outpatient follow-up. Status: Acute (4) Adnexal cyst: Problem details: Bilateral adnexal cystic lesions, right greater than left measuring 5.5 cm and 3.4 cm, respectively. Recommend further evaluation with pelvic ultrasound as an outpatient. I discussed these results with the patient and her son. They were aware of these results and were planning on outpatient follow-up. Status: Acute Time Spent With Patient Total time spent: Today I spent 35 minutes rounding on the patient. Greater than 50% included discussing plan with patient and her son, discussing care with the team, reviewing data, updating and managing the care plan. Subjective Time Seen by Provider: 07:25 Date Seen: 01/14/24 Interval history: No BM since arrival to floor. Woozy and lightheaded when sitting or standing. Feels okay laying down. I discussed the risks and benefits of blood products with the patient. The risks include transmission of blood borne illnesses including HIV and hepatitis. Additionally the risks include blood reaction or allergic reaction. We also discussed the benefit of getting a transfusion when her hemoglobin is low and symptomatic. The patient desired blood transfusion. EGD was done by Dr. Dorantes this morning and reported to me as a negative EGD with no blood in the stomach or duodenum. I spoke with patient about the results and then went back in later and spoke with the patient and her son about the results and plan of care. All total I have spent 25 minutes in the patient's room with the patient today. Exam Narrative: Exam Narrative: General: No acute distress. Awake, alert, oriented x3. Pallor noted. No jaundice. Oropharynx: Clear. Mucous membranes moist. Cardiovascular: Regular rate and rhythm. No murmurs, gallops, or rubs. Respiratory: Clear to auscultation bilaterally. No wheezes or crackles. Abdomen: Bowel sounds present. Soft, nondistended, nontender. Extremities: No pedal edema. Const: Vital Signs, click to edit/add: Vital Signs - 24 hr 01/13/24 22:26 01/14/24 03:02 01/14/24 03:44 Temperature 97.2 F L 97.9 F Pulse Rate Pulse Rate [Pulse Oximeter] 95 92 Respiratory Rate 20 20 20 Blood Pressure Blood Pressure [Ri ght Arm] 122/74 Blood Pressure [Ri ght Upper Arm] 103/66 Pulse Oximetry 97 98 98 [facility] Room Air Room Air 01/14/24 07:25 01/14/24 07:27 01/14/24 08:59 Temperature 97.7 F 98.1 F Pulse Rate 107 H Pulse Rate [Pulse Oximeter] 106 H 108 H Respiratory Rate 18 20 Blood Pressure 106/57 L Blood Pressure [Ri ght Arm] 102/53 L Blood Pressure [Ri ght Upper Arm] Pulse Oximetry 96 98 Oxygen Delivery Fl thod 01/14/24 09:14 01/14/24 09:17 01/14/24 10:20 Temperature 98.0 F 98.0 F 98.0 F Pulse Rate 104 H 102 H 88 Pulse Rate [Pulse Oximeter] Respiratory Rate 20 20 16 Blood Pressure 117/58 L 118/63 84/54 L Blood Pressure [Ri ght Arm] Blood Pressure [Ri ght Upper Arm] Pulse Oximetry 97 98 97 Oxygen Delivery Me thod 01/14/24 10:37 01/14/24 11:13 01/14/24 11:15 Temperature 98.0 F 97.9 F 97.9 F Pulse Rate 92 92 92 Pulse Rate [Pulse Oximeter] Respiratory Rate 16 18 18 Blood Pressure 106/67 116/63 116/63 Blood Pressure [Ri ght Arm] Blood Pressure [Ri ght Upper Arm] Pulse Oximetry 98 96 96 Oxygen Delivery Me thod 01/14/24 11:32 01/14/24 12:17 Temperature 98.0 F 98.2 F Pulse Rate 89 82 Pulse Rate [Pulse Oximeter] Respiratory Rate 18 18 Blood Pressure 118/62 111/91 H Blood Pressure [Ri ght Arm] Blood Pressure [Ri ght Upper Arm] Pulse Oximetry 98 96 Oxygen Delivery Me thod Labs Labs: Laboratory Results - last 24 hr 01/13/24 01/14/24 01/14/24 22:50 00:00 06:23 WBC 13.04 H RBC 3.07 L Hgb 10.1 L 7.3 L* Hct 30.1 L MCV 98 MCH 33 MCHC 34 RDW Coeff of Shyla 12.4 Plt Count 373 Neut % (Auto) 66.3 Lymph % (Auto) 18.2 L Island % (Auto) 8.7 Eos % (Auto) 0.8 Baso % (Auto) 0.2 Neut # (Auto) 8.60 H Lymph # (Auto) 2.40 Island # (Auto) 1.10 H Eos # (Auto) 0.10 Baso # (Auto) 0.00 Abs Immat Gran (auto) 0.80 H Imm/Tot Granulo (auto) 5.8 INR 1.01 Sodium 134 L Potassium 4.2 Chloride 99 Carbon Dioxide 31 Anion Gap 4 L BUN 49 H Creatinine 1.0 Estimated Creat Clear 31.81 Estimated GFR 55 Glucose 131 H Calcium 9.8 Total Bilirubin 0.5 Direct Bilirubin 0.3 AST 36 H ALT 26 Alkaline Phosphatase 68 C-Reactive Protein 1.7 H Total Protein 5.7 L Albumin 3.2 L Blood Type A Positive Antibody Screen NEGATIVE Crossmatch ([facility]) See Detail Ordering Physician: Krystyna Weiss M.D. Date of Service: 01/13/24 Procedure(s): CT abdomen pelvis w con Accession Number(s): [id number] cc: Krystyna Weiss M.D.; Liudmila Cervantes M.D.~ For Patients: As a result of the Cures Act, medical imaging exams and procedure reports are released immediately into your electronic medical record. You may view this report before your referring provider. If you have questions, please contact your health care provider. INDICATION: BLOODY DIARRHEA. LOWER ABD PAIN. HX DIVERTICULITIS. TECHNIQUE: CT abdomen and pelvis acquired with 100 cc of Omnipaque 350 IV contrast. COMPARISON: None. FINDINGS: Lower chest: 9 mm flat nodular density in the right middle lobe, likely a focus of scarring. Liver: Unremarkable. Normal in size and attenuation. No suspicious masses. Gallbladder and bile ducts: Unremarkable. No stones or inflammation. No biliary dilatation. Pancreas: Unremarkable. No mass or inflammation. Spleen: Unremarkable. Normal in size. No masses. Adrenal glands: Unremarkable. No nodules. Kidneys, Ureters, and Bladder: Moderate to severe right-sided hydronephrosis. Punctate nonobstructing nephrolith within the right kidney. The ureters are normal in caliber. Unremarkable left kidney and urinary bladder. GI tract: Diverticulosis without pericolonic inflammation. No obstruction. Normal appendix. Vasculature: Normal caliber abdominal aorta with severe atherosclerotic calcification. Mesenteric arteries are patent. Lymph nodes: No lymphadenopathy. Peritoneum/Abdominal Wall: Unremarkable. No free air or significant free fluid. Pelvis: 5.5 x 3.7 cm simple cystic lesion within the right adnexa 3.4 x 3.2 cm simple cystic lesion within the left adnexa. Bones: Left total hip arthroplasty. Otherwise, unremarkable for age IMPRESSION: 1. Diverticulosis without evidence of diverticulitis. 2. Moderate to severe right-sided hydronephrosis with abrupt transition to normal caliber right ureter at the ureteropelvic junction. 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 No obstructing lesion visualized. 3. Bilateral adnexal cystic lesions, right greater than left measuring 5.5 cm and 3.4 cm, respectively. Recommend further evaluation with pelvic ultrasound as an outpatient. Please note that all CT scans at this facility use dose modulation, iterative reconstruction, and/or weight-based dosing when appropriate to reduce radiation dose to as low as reasonably achievable. Dictated by Pipe Blair MD @ 01/14/2024 12:30:20 AM (Electronically Signed)
[2024-01-14 14:48] LABS: Hemoglobin* 10.1 gm/dL (12.0-16.0)
[2024-01-14] MEDS: SODIUM CHLORIDE 0.9 % (FLUSH) 10 ML SYRINGE 5 ML IVF ×2 (17:35→22:12)
--- NOTE | 2024-01-14 18:28 | PC.NURSE ---
Pt alert and oriented. Pt had no complaints of pain. Pt had one incontinent episode of blood stool. Pt went to [facility] and had a medium loose stool with dark red blood. Pt had an endoscopy this morning and no active bleeding found; see report. Pt received two units of blood and hemoglobin increased from 7.3 to 10.1; Pt stated she was feeling less weak and unsteady. Family at bedside early afternoon- evening. Pt pivot transfer of 1-2 with gait belt to the [facility]. ?
[2024-01-14 20:46] LABS: Hemoglobin* 8.9 gm/dL (12.0-16.0)
[2024-01-15] VITALS (10 sets, daily range): BP systolic 103–141; BP diastolic 54–100; PULSE 100–136; RESP 18–24; TEMP 35.9–37.3; O2SAT 93–98
[2024-01-15 00:07] LABS: Hemoglobin* 8.5 gm/dL (12.0-16.0)
[2024-01-15 02:37] LABS: Hemoglobin* 8.6 gm/dL (12.0-16.0)
--- NOTE | 2024-01-15 05:33 | PC.NURSE ---
[id number]: Patient cooperative with cares. A&Ox3. Denies pain. Bloody stool x2 during shift. Denies dizziness/lightheadedness. Hgb rechecks >8.0. A1 to BSC. Hesitant to drink or eat but denies nausea.
[2024-01-15] MEDS: PANTOPRAZOLE SODIUM 40 MG INJ IVP (06:25)
[2024-01-15] MEDS: SODIUM CHLORIDE 0.9 % (FLUSH) 10 ML SYRINGE 5 ML IVF (06:26)
[2024-01-15 06:39] LABS: Basophils Percent Auto 0.2 % (0.0-3.0); Eosinophils Percent Auto 0.1 % (0.0-7.0); Hematocrit 22.8 % (33.0-51.0); Immature Granulocytes Pct Auto 0.7 %; Lymphocytes Percent Auto 9.9 % (20-44); Mean Corpuscular HGB Conc 35 gm/dL (32-36); Mean Corpuscular Hemoglobin 32 pg (26-34); Mean Corpuscular Volume 90 fL (80-100); Monocytes Percent Auto 5.5 % (0.0-11.0); Neutrophils Percent Auto 83.6 % (42.0-72.0); Platelet Count* 239 K/uL (140-440); RDW Coefficient of Variation % 16.3 % (11.5-15.5); Red Blood Count 2.54 m/uL (4.00-5.20)
[2024-01-15 06:50] LABS: Slide Review Reflex No
[2024-01-15 06:58] LABS: Chloride* 107 mmol/L (96-114); Potassium* 3.6 mmol/L (3.6-5.1); Sodium* 137 mmol/L (135-149)
[2024-01-15 07:01] LABS: Anion Gap 5 mEq/L (7-15); Blood Urea Nitrogen* 44 mg/dL (7-30); Carbon Dioxide* 25 mmol/L (20-32); Creatinine* 0.8 mg/dL (0.5-1.5); Est. Creatinine Clearance* 31.92; Estimated Glomerular Filt Rate 72 ml/min; Glucose* 107 mg/dL (60-115)
[2024-01-15 07:02] LABS: Calcium* 8.3 mg/dL (8.4-10.6)
--- NOTE | 2024-01-15 08:20 | CRLHL7_ITS ---
For Patients: As a result of the Century Cures Act, medical imaging exams and procedure reports are released immediately into your electronic medical record. You may view this report before your referring provider. If you have questions, please contact your health care provider. INDICATION: GI bleed. TECHNIQUE: 22.5 millicuries of technetium-99m ultra tag is been given for red blood cell labeling. 40 minutes of imaging have been performed. FINDINGS: Initial imaging demonstrates good uptake of radiotracer within the blood pool and the heart consistent with a good red blood cell tag. There is an early abnormal area of extravasation of activity initially in the left lower quadrant which extends to the right lower quadrant. This loop surround into the pelvis. The pattern of activity is more indicative of distal small bowel as opposed to the distal colon. This continues during 40 minutes of imaging. IMPRESSION: Positive GI bleed examination within the pelvis. The pattern activity is more indicative of small bowel as opposed to distal colon. The initial area of a blush of abnormal activity is identified in the left lower quadrant consistent with the site of a GI bleed. Dictated by Papo Robison MD @ 01/15/2024 12:38:52 PM (Electronically Signed)
[2024-01-15 12:52] LABS: Hemoglobin* 9.3 gm/dL (12.0-16.0)
--- NOTE | 2024-01-15 13:16 | P.DS_ITS ---
Transfer Discharge Sum: Prov Provider Date Seen: 01/15/24 Date of admission: 01/15/24 11:26 Primary care physician: Liudmila Cervantes MD Anticipated date of transfer: 01/15/24 Receiving physician/facility: Dr. Clara Alegria DS: Diagnosis Discharge Diagnosis (1) Anemia: Status: Acute Problem details: - 01/13 Hemoglobin is 7.3 this morning, she is symptomatic and pale. She is agreeable to transfusion. Getting 2 units packed red blood cells. Goal hemoglobin is greater than 8. - 01/14 Patient still having melena overnight, no bright red blood. Remains symptomatic and pale. She is in sinus tachycardia today. This morning's hemoglobin is 8, down from 10 and 8.9 yesterday after transfusion. I gave her a 3rd unit of blood today and obtained a nuclear medicine GI bleed scan which was positive for GI bleeding within the pelvis. It is thought to represent small bowel bleeding. (2) Adnexal cyst: Status: Acute Problem details: Bilateral adnexal cystic lesions, right greater than left measuring 5.5 cm and 3.4 cm, respectively. Recommend further evaluation with pelvic ultrasound as an outpatient. I discussed these results with the patient and her son. They were aware of these results and were planning on outpatient follow-up. (3) Hydronephrosis: Status: Acute Problem details: Moderate to severe right-sided hydronephrosis with abrupt transition to normal caliber right ureter at the ureteropelvic junction. 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 No obstructing lesion visualized. I discussed these results with the patient and her son. They were aware of these results and were planning on outpatient follow-up. (4) GI bleed: Status: Acute Problem details: - per history with melena and a maroon-colored stool early this morning, it was concerning for the possibility of upper GI bleed. EGD was done this morning and was negative. It is been 10 years since the patient last had a colonoscopy. She notes that it was negative 10 years ago. Plan is to finish getting the 2 units of blood, recheck hemoglobin 1 hour after that and check hemoglobin tomorrow morning looking for stability. If patient has had no further melena or bloody bowel movements, then she could discharge home and follow-up with her primary care provider. With her son in the room today, we spoke about how this may complicate her upcoming hip surgery scheduled for later this month as she would need to be on blood thinners after surgery for VTE prophylaxis and if we did not understand the nature of this GI bleed and whether it will recur, she would be at risk for bleeding while on blood thinners. I have advised her to see Dr. Cervantes as an outpatient to discuss these concerns prior to her planned elective surgery. - 01/14 As above. Also Nuc med GI scan shows probable distal small bowel bleed. I spoke with Dr. Graves ([facility]) and Dr. Elizabeth (hospitalist - accepted patient to her service). They would like me to get a CTA for GI bleed here while patient is waiting for transfer to [facility]. Transfer Discharge Sum: Med Medications Active and Home Medications: Home Medications amlodipine 10 mg tablet 10 mg PO DAILY 05/07/23 [History Confirmed 01/13/24] calcium carbonate 200 mg PO BID 05/07/23 [History Confirmed 01/13/24] metoprolol succinate 50 mg tablet,extended release 24 hr 50 mg PO DAILY 05/07/23 [History Confirmed 01/13/24] cyclosporine 0.05 % eye drops (Restasis MultiDose) 1 drp ophthalmic (eye) BID 01/14/24 [History Confirmed 01/14/24] hydromorphone 2 mg tablet 2 mg PO Q6H PRN 01/14/24 [History Confirmed 01/14/24] pregabalin 50 mg capsule 50 mg PO TID 01/14/24 [History Confirmed 01/14/24] Active Medications Amlodipine Besylate (Amlodipine 10 Mg Tablet) 10 mg PO DAILY [facility] Last Admin: 01/14/24 08:17 Dose: Not Given Sodium Chloride (0.9 % Sodium Chloride 1000 Ml) 1,000 mls @ 1,000 mls/hr IV .Q1H ZAHRA Stop: 01/15/24 14:09 Metoprolol Succinate (Metoprolol Succinate (Xl) 50 Mg Tab) 50 mg PO DAILY ZAHRA Last Admin: 01/14/24 08:17 Dose: Not Given Ondansetron HCl (Ondansetron 2 Mg/Ml Inj) 4 mg IVP Q4H PRN PRN Reason: Nausea Pantoprazole Sodium (Pantoprazole Sodium 40 Mg Inj) 40 mg IVP Q12H ZAHRA Last Admin: 01/15/24 06:25 Dose: 40 mg Sodium Chloride (Sodium Chloride 0.9 % (Flush) 10 Ml Syringe) 5 ml IVF .FLUSH PRN Last Admin: 01/15/24 06:26 Dose: 5 ml Sodium Chloride (Sodium Chloride 0.9 % (Flush) 10 Ml Syringe) 5 ml IVF BID ZAHRA Last Admin: 01/15/24 08:31 Dose: Not Given Sodium Chloride (0.9 % Sodium Chloride 250 Ml) 250 ml IV ONCE PRN Stop: 01/15/24 23:59 Last Admin: 01/14/24 12:20 Dose: 250 ml Sodium Chloride (0.9 % Sodium Chloride 250 Ml) 250 ml IV ONCE PRN Stop: 01/16/24 23:59 Sodium Chloride (0.9 % Sodium Chloride 250 Ml) 250 ml IV ONCE PRN Stop: 01/16/24 23:59 Transfer Discharge Sum: Hosp Hospital Course Hospital course: Birdie Fernandez is a 88 year old female who is not on anticoagulation and has no history of GI bleeding who having diarrhea about a week ago which then turned in to melena a few days before admission. Her stools then became more dark red which brought her to the ER. She was admitted for concern of upper GI bleed and started on Protonix IV. Hemoglobin on admission was around 10 and was 7.3 by the next morning and she was symptomatic with dizziness and lightheadedness upon sitting up or standing. She had mild tachycardia and occasional hypotension. She continued to have melena. I gave her 2 units of packed red blood cells. Upper GI was done by Dr. Dorantes and was unremarkable. Patient's last colonoscopy was about 10 years ago in [place] and she recalls it being negative. Overnight she continued to have melena and hemoglobin, which was 10 after getting the 2 units of blood, drifted down to 8.9 that evening and 8 by the next morning, which is today. She has sinus tachycardia this morning although blood pressure remains stable. She is again lightheaded and dizzy with sitting and standing. Gave the patient another unit of blood, the 3rd unit. [facility] was positive for bleeding and showed a bleed likely in the distal small bowel. With these results, I spoke to Dr. Dorantes from General surgery who had done the EGD yesterday and she confirmed that this patient would likely need Interventional Radiology which we do not have here. I spoke with Dr. Elizabeth from hospitalist team at [facility] who accepted this patient in transfer for concern of GI bleed. She wanted me to also speak with the GI doc. I spoke with Dr. Graves from [facility] who agreed that this patient needed transfer for brisk lower GI bleeding and wanted her to have a CTA for GI bleed while still bleeding, if possible, and they would accept her in transfer unlikely try to prep her for colonoscopy tomorrow. Time Spent with Patient Time attestation: Total time spent providing and/or coordinating transfer services: Exam Narrative: Exam Narrative: General: No acute distress. Awake, alert, oriented x3. Pallor noted. No jaundice. Oropharynx: Clear. Mucous membranes moist. Cardiovascular: Regular rate and rhythm. No murmurs, gallops, or rubs. Respiratory: Clear to auscultation bilaterally. No wheezes or crackles. Abdomen: Bowel sounds present. Soft, nondistended, nontender. Extremities: No pedal edema. Const: Vital Signs, click to edit/add: Vital Signs - 24 hr 01/14/24 13:42 01/14/24 14:19 01/14/24 14:29 Temperature 98.0 F 98.0 F 98.2 F Pulse Rate 93 94 Pulse Rate [Pulse Oximeter] 94 Respiratory Rate 18 18 18 Blood Pressure 105/61 114/67 Blood Pressure [Le ft Calf] Blood Pressure [Ri ght Arm] 114/67 Pulse Oximetry 96 96 Oxygen Delivery Me thod Room Air 01/14/24 19:45 01/14/24 22:10 01/15/24 02:03 Temperature 97.7 F 97.8 F 97.8 F Pulse Rate Pulse Rate [Pulse Oximeter] 109 H 105 H 118 H Respiratory Rate 20 20 24 Blood Pressure Blood Pressure [Le ft Calf] Blood Pressure [Ri ght Arm] 124/69 123/74 141/77 H Pulse Oximetry 93 94 93 Oxygen Delivery Me thod Room Air Room Air Room Air 01/15/24 07:35 01/15/24 08:00 01/15/24 09:19 Temperature 98.2 F 96.6 F L Pulse Rate Pulse Rate [Pulse Oximeter] 117 H 117 H 136 H Respiratory Rate 18 18 18 Blood Pressure Blood Pressure [Le ft Calf] 131/68 119/100 H Blood Pressure [Ri ght Arm] 139/68 Pulse Oximetry 95 97 Oxygen Delivery Me thod Room Air Room Air 01/15/24 10:10 01/15/24 10:31 01/15/24 10:37 Temperature 98.4 F 98.3 F 98.0 F Pulse Rate 111 H 108 H 130 H Pulse Rate [Pulse Oximeter] Respiratory Rate 24 24 20 Blood Pressure 135/54 L 124/61 121/74 Blood Pressure [Le ft Calf] Blood Pressure [Ri ght Arm] Pulse Oximetry 94 95 98 Oxygen Delivery Me thod 01/15/24 12:20 Temperature 98.0 F Pulse Rate Pulse Rate [Pulse Oximeter] 136 H Respiratory Rate 20 Blood Pressure Blood Pressure [Le ft Calf] 121/74 Blood Pressure [Ri ght Arm] Pulse Oximetry 98 Oxygen Delivery Me thod Room Air Transfer Discharge Sum: Data Data Completed and Pending Completed studies during hospitalization: 01/14/2024 EKG: Sinus rhythm with premature atrial complexes. Heart rate 87 beats per minute. Cannot rule out anterior infarct, age undetermined. Ordering Physician: Krystyna Weiss M.D. Date of Service: 01/13/24 Procedure(s): CT abdomen pelvis w con Accession Number(s): [id number] cc: Krystyna Weiss M.D.; Liudmila Cervantes M.D.~ For Patients: As a result of the 21st Century Cures Act, medical imaging exams and procedure reports are released immediately into your electronic medical record. You may view this report before your referring provider. If you have questions, please contact your health care provider. INDICATION: BLOODY DIARRHEA. LOWER ABD PAIN. HX DIVERTICULITIS. TECHNIQUE: CT abdomen and pelvis acquired with 100 cc of Omnipaque 350 IV contrast. COMPARISON: None. FINDINGS: Lower chest: 9 mm flat nodular density in the right middle lobe, likely a focus of scarring. Liver: Unremarkable. Normal in size and attenuation. No suspicious masses. Gallbladder and bile ducts: Unremarkable. No stones or inflammation. No biliary dilatation. Pancreas: Unremarkable. No mass or inflammation. Spleen: Unremarkable. Normal in size. No masses. Adrenal glands: Unremarkable. No nodules. Kidneys, Ureters, and Bladder: Moderate to severe right-sided hydronephrosis. Punctate nonobstructing nephrolith within the right kidney. The ureters are normal in caliber. Unremarkable left kidney and urinary bladder. GI tract: Diverticulosis without pericolonic inflammation. No obstruction. Normal appendix. Vasculature: Normal caliber abdominal aorta with severe atherosclerotic calcification. Mesenteric arteries are patent. Lymph nodes: No lymphadenopathy. Peritoneum/Abdominal Wall: Unremarkable. No free air or significant free fluid. Pelvis: 5.5 x 3.7 cm simple cystic lesion within the right adnexa 3.4 x 3.2 cm simple cystic lesion within the left adnexa. Bones: Left total hip arthroplasty. Otherwise, unremarkable for age IMPRESSION: 1. Diverticulosis without evidence of diverticulitis. 2. Moderate to severe right-sided hydronephrosis with abrupt transition to normal caliber right ureter at the ureteropelvic junction. 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 No obstructing lesion visualized. 3. Bilateral adnexal cystic lesions, right greater than left measuring 5.5 cm and 3.4 cm, respectively. Recommend further evaluation with pelvic ultrasound as an outpatient. Please note that all CT scans at this facility use dose modulation, iterative reconstruction, and/or weight-based dosing when appropriate to reduce radiation dose to as low as reasonably achievable. Dictated by Pipe Blair MD @ 01/14/2024 12:30:20 AM (Electronically Signed) Ordering Physician: Mavis Myers M.D. Date of Service: 01/15/24 Procedure(s): NM GI bleeding Accession Number(s): [id number] cc: Mavis Myers M.D.; Liudmila Cervantes M.D.~ For Patients: As a result of the Cures Act, medical imaging exams and procedure reports are released immediately into your electronic medical record. You may view this report before your referring provider. If you have questions, please contact your health care provider. INDICATION: GI bleed. TECHNIQUE: 22.5 millicuries of technetium-99m ultra tag is been given for red blood cell labeling. 40 minutes of imaging have been performed. FINDINGS: Initial imaging demonstrates good uptake of radiotracer within the blood pool and the heart consistent with a good red blood cell tag. There is an early abnormal area of extravasation of activity initially in the left lower quadrant which extends to the right lower quadrant. This loop surround into the pelvis. The pattern of activity is more indicative of distal small bowel as opposed to the distal colon. This continues during 40 minutes of imaging. IMPRESSION: Positive GI bleed examination within the pelvis. The pattern activity is more indicative of small bowel as opposed to distal colon. The initial area of a blush of abnormal activity is identified in the left lower quadrant consistent with the site of a GI bleed. Dictated by Papo Robison MD @ 01/15/2024 12:38:52 PM (Electronically Signed) Discharge Plan Discharge Disposition: [facility] Date of Admission: 01/15/24 11:26 Attending Provider on Discharge: Mavis Myers Primary Care Provider: Liudmila Cervantes Condition: Stable Discharge Orders: Transfer of Care to Other Hospital (ORDER); Ordered 01/15/24 Ordered By: Mavis Myers Oxygen: No Urinary Catheter: No Services not available here: GI, IR
[2024-01-15] MEDS: 0.9 % SODIUM CHLORIDE 1000 ml 1,000 ML IV (13:19)
--- NOTE | 2024-01-15 13:43 | CRLHL7_ITS ---
For Patients: As a result of the 21st Century Cures Act, medical imaging exams and procedure reports are released immediately into your electronic medical record. You may view this report before your referring provider. If you have questions, please contact your health care provider. INDICATION: Gastrointestinal bleeding, melena. TECHNIQUE: Multiplanar CT angiogram examination of the abdomen and pelvis was performed after the administration of 100 mL Omnipaque 350 intravenous contrast, gastrointestinal bleed protocol. COMPARISON: Same-day nuclear medicine examination of the abdomen and pelvis. CT abdomen pelvis 01/13/2024.. FINDINGS: Lower chest: No focal consolidation. Normal heart size. No pleural effusions or pneumothorax. Nodular focus in the right middle lobe, stable, likely due to fibrotic changes. Subpleural reticulations and linear bandlike opacification is likely due to scarring and subsegmental atelectasis. Liver: Unremarkable. Gallbladder: Unremarkable. Biliary: Unremarkable. Pancreas: Within normal limits. Spleen: Unremarkable. Adrenal glands: Unremarkable. Renal/ureters/bladder: Stable moderate to severe right sided hydronephrosis without obstructing calculus or mass lesion identified. There are several nonobstructive calculi within the collecting system of both kidneys. No left-sided hydronephrosis. No suspicious renal masses. The ureters appear unremarkable. The bladder is within normal limits. Pelvis: Multiloculated simple appearing ovarian cysts, 5.5 cm on the right and 3.8 cm on the left. Gastrointestinal: There is active extravasation of contrast with pooling on the delayed venous phase images within the lumen of the mid jejunum in the left lower quadrant (4:115 and 10:115), compatible with active gastrointestinal arterial hemorrhage. No bowel obstruction. Colonic diverticulosis without pericolonic fat stranding to suggest acute diverticulitis. Mild colonic stool burden. Vasculature: No aortic aneurysm. The portal vein remains patent. Moderate atherosclerotic calcifications. Lymph nodes: No pathologic lymphadenopathy by size criteria. Peritoneum: No free fluid or pneumoperitoneum. No drainable fluid collections. Abdominal wall/soft tissues: Unremarkable. Bones: No acute osseous abnormalities. Multilevel degenerative changes of the thoracolumbar spine. Status post total left hip arthroplasty, with streak artifact limited evaluation of the adjacent structures. IMPRESSION: 1. Findings compatible with active gastrointestinal hemorrhage within the mid jejunum in the left lower quadrant, as seen on the same day nuclear medicine examination. 2. Bilateral multiloculated adnexal cystic lesions, grossly unchanged. Advise further evaluation with pelvic ultrasound in an outpatient setting to exclude underlying malignancy. Please note that all CT scans at this facility use dose modulation, iterative reconstruction, and/or weight-based dosing when appropriate to reduce radiation dose to as low as reasonably achievable. Dictated by Ronnie Sherman MD @ 01/15/2024 3:39:39 PM (Electronically Signed)
--- NOTE | 2024-01-15 15:54 | PC.NURSE ---
End of shift. alert x4. Pt alert and oriented. Pt had no complaints of pain. Pt has 2 maroon bloody stools. pt had her blood tagged to see where the bleeding was Pt received one unit of blood and hemoglobin increased to 9.3. Pt pivot transfer of 1 with gait belt to the commode. ?pt was transferred and [facility].
[2024-01-15 16:52] LABS: CDIFFEPI 027 PRESUMPTIVE NEGATIVE (Negative)
[2024-01-15 22:56] LABS: C.Difficile POSITIVE (Negative)
== END 2024-01-15 15:40 | disposition short-term general hospital (02) | DRG 812 ==
LOC: ED 01-14 00:57 → MEDSURG 01-14 01:10
PROVIDERS: Family Medicine; Admitting Provider Internal Medicine; Emergency Provider Emergency Medicine; PCP Family Medicine; Visit Provider Internal Medicine
DX: D62 Acute posthemorrhagic anemia (principal); K92.1 Melena; N13.30 Unspecified hydronephrosis; G95.89 Other specified diseases of spinal cord; R42 Dizziness and giddiness; R00.0 Tachycardia, unspecified; I95.1 Orthostatic hypotension; K57.90 Diverticulosis of intestine, part unspecified, without perforation or abscess without bleeding; I10 Essential (primary) hypertension; M47.896 Other spondylosis, lumbar region; G56.81 Other specified mononeuropathies of right upper limb; N83.292 Other ovarian cyst, left side; N83.291 Other ovarian cyst, right side
CPT/HCPCS: 00731; 36415; 36430; 43235; 74174; 74177; 78278; 80048; 80076; 85018; 85025; 85610; 86140; 86850; 86900; 86901; 86922; 87493; 99100; 99140; 99284; 99285; A9512; A9560; C9113; G0378; J2704; J7030; J7050; P9016; Q9967

== ENCOUNTER 2024-01-15 15:36 | Outpatient (CLI) | payer MEDICARE, SELFPAY | END 2024-01-15 15:37 | disposition home or self-care (01) | LOC: AMB 01-18 16:10 | PROVIDERS: PCP Family Medicine; Visit Provider Emergency Medicine | DX: K92.2 Gastrointestinal hemorrhage, unspecified (principal) | CPT/HCPCS: A0425; A0427 ==

== ENCOUNTER 2025-03-23 06:00 | Day surgery (SDC) | payer MEDICARE, SELFPAY ==
[2025-03-23] MEDS: LACTATED RINGERS 1000 ML 1,000 ML 100 ML IV (06:15)
[2025-03-23 06:34] VITALS: BP 152/63; PULSE 63; RESP 16; TEMP 36.6; O2SAT 95; BMI 21.4
[2025-03-23] MEDS: SODIUM CHLORIDE 0.9 % (FLUSH) 10 ML SYRINGE IVF (06:36)
[2025-03-23] MEDS: BUPIVACAINE 0.25% 30 ML INJECTION (07:38)
--- NOTE | 2025-03-23 07:58 | P.ANES_ITS ---
Anesthesia Charges Start Date/Time Anesthesia Start Date: 03/23/25 Anesthesia Start Time: 07:17 Stop Date/Time Anesthesia Stop Date: 03/23/25 Anesthesia Stop Time: 08:02 Coding CPT Codes CPT Codes: ANESTH LOWER LEG PROCEDURE - 97225 ([id number]) P2 - PATIENT W/MILD SYST DISEASE, QK - CERTIFICATION ENGINEER 2-4 CNCRNT ANES PROC, QX - PERFECT BINDER FEEDER OFFBEARER SVC W/ MD MED DIRECTION
--- NOTE | 2025-03-23 07:58 | W.ANESCHARGE ---
Anesthesia Charges Start Date/Time Anesthesia Start Date: 03/23/25 Anesthesia Start Time: 07:17 Stop Date/Time Anesthesia Stop Date: 03/23/25 Anesthesia Stop Time: 08:02 Coding CPT Codes CPT Codes: ANESTH LOWER LEG PROCEDURE - 48860 ([id number]) P2 - PATIENT W/MILD SYST DISEASE, QK - RAILCAR FOREMAN 2-4 CNCRNT ANES PROC, QX - LOSS PREVENTION INVESTIGATOR SVC W/ MD MED DIRECTION
[2025-03-23 08:00] VITALS: BP 120/62; PULSE 59; RESP 16; TEMP 36.4; O2SAT 98
[2025-03-23 08:15] VITALS: BP 115/57; PULSE 58; RESP 16; O2SAT 95
[2025-03-23 08:30] VITALS: BP 115/56; PULSE 55; RESP 16; O2SAT 93
--- NOTE | 2025-03-23 08:42 | P.ANES_ITS ---
Anesthesia Charges Start Date/Time Anesthesia Start Date: 03/23/25 Anesthesia Start Time: 07:17 Stop Date/Time Anesthesia Stop Date: 03/23/25 Anesthesia Stop Time: 08:02 Summary Extremes of Age - Over 70 or under 1: MDA Coding CPT Codes CPT Codes: ANESTH LOWER LEG BONE SURG - 07995 ([id number]) QK - NURSING SERVICES MANAGER 2-4 CNCRNT ANES PROC, QX - GLASS PRODUCTS INSPECTOR SVC W/ MD MED DIRECTION, P2 - PATIENT W/MILD SYST DISEASE Additional Codes: Summary - Extremes of Age - Over 70 or under 1: HARIKA ([id number])
[2025-03-23 08:45] VITALS: BP 117/56; PULSE 59; RESP 16; O2SAT 95
[2025-03-23 09:00] VITALS: BP 124/58; PULSE 57; RESP 16; O2SAT 93
--- NOTE | 2025-03-23 13:58 | W.PM.PODPROC ---
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 3rd toe pain right Type of Procedure: partial amputation 3rd toe right foot Indications: patient has had ongoing significant pain to the 3rd toe that is had multiple surgeries. At this point I recommend partial amputation and to resolve the pain. At her age and bone quality I do not recommend further reconstructive attempts. She is in agreement would like to proceed. I reviewed the procedure, recovery, expectation potential complications. These include but are not limited to: Poor wound healing, infection, potential need for future surgery, deep venous thrombosis, pulmonary embolism possible . She understands risks written consent was obtained. Site was marked. Procedure Description: Patient has been the operating room placed supine position on the operating table to time IV sedation was initiated and local anesthetic injected into the right foot. She was prepped and draped in normal aseptic manner. Standard time-out protocol followed. fishmouth incision was made at the PIPJ creating dorsal and plantar flaps. Incision was carried down to bone. The toe was disarticulated at the abnormal PIPJ and removed. Sagittal saw was then used to resect at the midshaft of the proximal phalanx and the distal portion removed. Wound was thoroughly irrigated normal sterile saline. Bleeding vessels cauterized. Flaps were brought together and closed with 3-0 nylon. Sterile dressing was applied. She was transferred from OR to PACU vital signs stable vascular status intact to the right foot. She was discharged per same-day surgery protocol. She is given [place] for pain. She is weight-bearing as tolerated. Follow-up in 2 days. Anesthesia: MAC and local Estimated blood loss (mL): 2 Specimens: none sent Disposition: same day
== END 2025-03-23 09:16 | disposition home or self-care (01) ==
LOC: OR 06:03
PROVIDERS: PCP Family Medicine; Visit Provider Podiatrist
PROC: (CPT 28825; principal; 2025-03-23 07:15)
DX: M20.61 Acquired deformities of toe(s), unspecified, right foot (principal); M79.674 Pain in right toe(s)
CPT/HCPCS: 28825; 01462; 01480; 99100; J0665; J0690; J1100; J2405; J2704; J3010; J7120

== ENCOUNTER 2025-05-28 13:45 | Outpatient (RCR) | payer MEDICARE, SELFPAY | END 2025-05-29 07:25 | disposition home or self-care (01) | PROVIDERS: PCP Family Medicine; Visit Provider Family Medicine | DX: Z47.81 Encounter for orthopedic aftercare following surgical amputation (principal); R26.81 Unsteadiness on feet; Z91.81 History of falling; Z96.641 Presence of right artificial hip joint; Z51.89 Encounter for other specified aftercare | CPT/HCPCS: 97110; 97116; 97140; 97161; 97530 ==

== ENCOUNTER 2025-07-21 08:59 | Outpatient (CLI) | payer MEDICARE, SELFPAY ==
--- NOTE | 2025-07-21 09:15 | CRLHL7_ITS ---
For Patients: As a result of the 21st Century Cures Act, medical imaging exams and procedure reports are released immediately into your electronic medical record. You may view this report before your referring provider. If you have questions, please contact your health care provider. INDICATION: Low back pain. COMPARISON: None available. TECHNIQUE: Sagittal T1, T2, and STIR sequences. Axial T1 and T2 weighted sequences. FINDINGS: Lumbar curve convex the left. Within the partially visualized pelvis, there are an conglomerate cystic collections bilaterally which may be ovarian origin. Recommend further followup with CT or ultrasound for further evaluation. Multiple large parapelvic cysts of the right kidney. No evidence of abnormal dilatation of the ureters. Trace degenerative anterolisthesis of L3 on L4 on L4 on L5 measures approximately 3 mm. Normal facet alignment. No fractures. No vertebral body loss of height. No ligamentous injury. No suspicious osseous lesions. Normal conus terminates at L1. T12-L1: Disc degeneration post disc bulge. No spinal canal narrowing. Mild narrowing of the right neural foramen. No narrowing of the left neural foramen. L1-2: Disc degeneration. Diffuse disc bulge. No narrowing of the spinal canal. Mild narrowing of bilateral foramina. L2-3: Disc degeneration loss disc height. Modic type 1 endplate changes. No narrowing of the spinal canal. No neural foraminal narrowing. L3-4: Disc degeneration diffuse disc bulge eccentric to the right. Mild narrowing of the spinal canal. Mild narrowing of the right neural foramen. No narrowing of left neural foramen. L4-5: Disc degeneration. Diffuse disc bulge eccentric to the right. No narrowing of the spinal canal. Mild to moderate narrowing of the right neural foramen. Mild narrowing of the left neural foramen. Mild facet arthropathy. L5-S1: Disc degeneration diffuse disc bulge eccentric to the left. No narrowing of the spinal canal. No impingement of the traversing S1 nerve roots. Mild narrowing of the bilateral foramina. Degenerative changes of the SI joints. IMPRESSION: 1. Within the visualized pelvis, conglomerate cystic collections bilaterally which may be ovarian in origin. Recommend follow-up with CT or ultrasound for further evaluation. 2. Multiple large parapelvic cysts of the right kidney. No evidence of hydronephrosis or ureteral dilatation 3. Trace degenerative anterolisthesis of L3 on L4 and L4 on L5. 4. Lumbar spondylosis 5. At L3-4, mild narrowing of the spinal canal and right neural foramen 6. At L4-5, [id number] narrowing of the right neural foramen. Mild narrowing of the left neural foramen 7. At L5-S1, mild narrowing of the bilateral neural foramina Dictated by Keith Vela MD @ 07/21/2025 12:41:16 PM (Electronically Signed)
== END 2025-07-21 09:00 | disposition home or self-care (01) ==
LOC: MRI 09:00
PROVIDERS: PCP Family Medicine
DX: M54.50 Low back pain, unspecified (principal)
CPT/HCPCS: 72148